=== PATIENT | female | born 1960 | race African-American/Black ===

== ENCOUNTER 2016-09-27 13:03 | Emergency (ER) | payer OTHER ==
[~2016-09-27] VITALS: Ht 162.6 cm; Wt 68.0 kg
[~2016-09-27 13:03] MED LIST: ACETAMINOPHEN-120 ML PO; ANAPROX PO; AQUAPHOR HEALIN50 GM TP; ASPIRIN EC81 M1 PO; AVELOX 400 MG400 MG PO; BACTRIM DS TAB1 EACH PO; CALCIUM CITRAT1 EA14 PO; CLONAZEPAM; CLONAZEPAM 1 MG1 M1 PO; COMBIVENT INH; DIOVAN PO; DUONEB 2.5-0.5 M3 ML IH; HCTZ PO; IBUPROFEN 600600 M1 PO; K-DUR10 ME1 PO; LISINOPRIL10 MG; LOW DOSE ASPIRI81 M1 PO; MACROBID 100 M100 M1 PO; MEDROLDOSEPACK PO; NORCO 5-325 TA1 EACH PO; PEPCID40 MG PO; PERCOCET 10-321 EACH PO; PERCOCET PO; PRAVASTATIN SOD20 MG PO; PRAVASTATIN SOD40 MG PO; PREDNISONE 20 M20 MG PO; PYRIDIUM100 M1 PO; TOPROL XL25 MG PO; TRAZODONE HCL50 MG PO; ULTRAM 50MG TAB50 MG PO; UNICOMPLEX M TA1 TA1; VENTOLIN17 GM INH; ZPAK PO
[2016-09-27] MEDS ORDERED: HYDROCHLOROTHIA25 M2 PO (13:13)
[2016-09-27] MEDS ORDERED: OMEPRAZOLE40 MG PO (13:13)
[2016-09-27] MEDS ORDERED: ESCITALOPRAM OX10 MG PO (13:15)
[2016-09-27] MEDS ORDERED: HYDROCODONE-APA1 TA1 (13:15)
[2016-09-27 14:59] VITALS: BP 141/84
== END 2016-09-27 14:59 | disposition home or self-care (01) ==
LOC: ER 13:03
DX: M79.89 Other specified soft tissue disorders (principal); I10 Essential (primary) hypertension; E78.5 Hyperlipidemia, unspecified; Z98.890 Other specified postprocedural states; F10.99 Alcohol use, unspecified with unspecified alcohol-induced disorder; F12.10 Cannabis abuse, uncomplicated

== ENCOUNTER 2017-11-23 13:50 | Emergency (ER) | payer OTHER ==
[~2017-11-23] VITALS: Ht 162.6 cm; Wt 63.5 kg
[~2017-11-23 13:50] MED LIST changes: +ESCITALOPRAM OX10 MG PO; +HYDROCHLOROTHIA25 M2 PO; +HYDROCODONE-APA1 TA1; +OMEPRAZOLE40 MG PO
[2017-11-23 13:56] VITALS: BP 166/103
[2017-11-23] MEDS ORDERED: HYDROCODONE-AP1 EAC6 PO (14:56)
[2017-11-23] MEDS ORDERED: VOLTAREN GEL 1100 G2 TOP (14:56)
== END 2017-11-23 14:20 | disposition home or self-care (01) ==
LOC: ER 13:50
DX: M17.11 Unilateral primary osteoarthritis, right knee (principal); M54.5 Low back pain; G89.29 Other chronic pain; I10 Essential (primary) hypertension; E78.5 Hyperlipidemia, unspecified; Z90.89 Acquired absence of other organs; Z87.891 Personal history of nicotine dependence

== ENCOUNTER 2018-09-27 18:57 | Emergency (ER) | payer OTHER ==
[~2018-09-27] VITALS: Ht 162.6 cm; Wt 61.2 kg
[~2018-09-27 18:57] MED LIST changes: +HYDROCODONE-AP1 EAC6 PO; +VOLTAREN GEL 1100 G2 TOP
[2018-09-27] MEDS ORDERED: MOBIC7.5 MG PO (19:33)
[2018-09-28 01:56] VITALS: BP 154/90
== END 2018-09-28 01:58 | disposition home or self-care (01) ==
LOC: ER 18:57
DX: M19.011 Primary osteoarthritis, right shoulder (principal); M19.022 Primary osteoarthritis, left elbow; M19.032 Primary osteoarthritis, left wrist; I10 Essential (primary) hypertension; E78.5 Hyperlipidemia, unspecified; F17.210 Nicotine dependence, cigarettes, uncomplicated; Z98.51 Tubal ligation status; Z98.890 Other specified postprocedural states; Z88.5 Allergy status to narcotic agent

== ENCOUNTER 2018-10-29 00:02 | Emergency (ER) | payer OTHER ==
[~2018-10-29] VITALS: Ht 162.6 cm; Wt 68.0 kg
[~2018-10-29 00:02] MED LIST changes: +MOBIC7.5 MG PO
[2018-10-29] MEDS ORDERED: CYCLOBENZAPRINE5 MG PO (01:55)
[2018-10-29] MEDS ORDERED: GRALISE300 MG PO (01:55)
[2018-10-29] MEDS ORDERED: MOBIC15 MG PO (02:56)
[2018-10-29] MEDS ORDERED: ULTRAM 50MG TAB50 MG PO (03:04)
[2018-10-29 03:20] VITALS: BP 165/79
== END 2018-10-29 03:21 | disposition home or self-care (01) ==
LOC: ER 00:02
DX: M25.532 Pain in left wrist (principal); M25.511 Pain in right shoulder; I10 Essential (primary) hypertension; E78.5 Hyperlipidemia, unspecified; F17.210 Nicotine dependence, cigarettes, uncomplicated; Z98.51 Tubal ligation status; Z88.5 Allergy status to narcotic agent